=== PATIENT | female | born 1980 | race African-American/Black ===

== ENCOUNTER 2019-01-29 19:03 | Emergency (ER) | payer SELFPAY ==
[~2019-01-29] VITALS: Ht 167.6 cm; Wt 91.0 kg
[2019-01-29] MEDS ORDERED: ONDANSETRON HCL 4MG/2ML INJ IV STA (19:57)
[2019-01-29] MEDS ORDERED: SODIUM CHLORIDE 0.9% 1,000 ML IV ONE ×2 (19:57→21:19)
[2019-01-29 23:06] VITALS: BP 156/94
== END 2019-01-29 23:11 | disposition home or self-care (01) ==
LOC: ER 19:03
DX: G92 Toxic encephalopathy (principal); T40.7X1A Poisoning by cannabis (derivatives), accidental (unintentional), initial encounter; Y92.89 Other specified places as the place of occurrence of the external cause; R00.0 Tachycardia, unspecified; F12.10 Cannabis abuse, uncomplicated
CPT/HCPCS: 82962; 93005; 96361; 96374; 99284; J2405; J7030